=== PATIENT | male | born 1945 | race Caucasian/White ===

== ENCOUNTER 2020-10-30 17:21 | Emergency (ER) | payer MEDICARE, OTHER ==
--- NOTE | 2020-10-30 18:03 | ER Document Report ---
ED Medical Screen (RME) - General Chief Complaint: Knee Pain Stated Complaint: FEVER/SHORTNESS OF BREATH - HPI Notes: 10/30/20 17:57 Rapid Medical Exam HPI: 75-year-old male presents to the ER complaining of left knee pain swelling and fever since this morning. Patient had a left total knee replacement on Tuesday in [place]. Temp up to 102 today. Patient went to physical therapy today and they noted the fever and sent him on to orthopedics and [facility] decided to send the patient to the ER for further evaluation. Patient says they want a Covid test. Patient says he had a negative Covid test on Tuesday before the surgery and is quarantine since. He has no other associated signs of Covid like loss of taste or smell, sore throat, shortness breath, nausea vomiting diarrhea, cough etc. Patient does complain of increased fatigue. He does ambulate with a walker with pain. Bandages were removed today from the knee so patient is unsure about any changes regarding the swelling/redness. Patient says knee pain has worsened today and has a lot of difficulty with any range of motion of that knee while in triage. Physical Exam: GENERAL: Well-appearing, well-nourished and in no acute distress. HEAD: Atraumatic, normocephalic. ENT: Moist mucous membranes. RESP: Respirations even and unlabored CV- Regular rate. NEURO: No focal neurological deficits. Moves all extremities spontaneously and on command. msk-left kneemoderate swelling erythema to the anterior knee. Erythema tracks proximally to the medial thigh, warm to palpation. Incisions to anterior knee are Dermabond did with Steri-Strips and well approximated, small amount of dried blood. No active drainage or bleeding. My involvement in this patients care was limited to a rapid initial assessment. A comprehensive ED assessment and evaluation of the patient, analysis of test results, treatment, and completion of the medical decision making process will be performed by other ER providers. 10/30/20 18:01 Past Medical History - Social History Frequency of alcohol use: None Drug Abuse: None Physical Exam - Vital signs Vitals: Temp Pulse Resp BP Pulse Ox 99.2 F 98 18 153/56 H 97 10/30/20 17:34 10/30/20 17:34 10/30/20 17:34 10/30/20 17:34 10/30/20 17:34 Course - Vital Signs Vital signs: Temp Pulse Resp BP Pulse Ox 99.2 F 98 18 153/56 H 97 10/30/20 17:34 10/30/20 17:34 10/30/20 17:34 10/30/20 17:34 10/30/20 17:34
--- NOTE | 2020-10-30 18:44 | RADIOLOGY REPORT (SQ) ---
EXAM DESCRIPTION: CHEST SINGLE VIEW IMAGES COMPLETED DATE/TIME: 10/30/2020 6:12 pm REASON FOR STUDY: fever, sob, post op kne replacement COMPARISON: None. EXAM PARAMETERS: NUMBER OF VIEWS: One view. TECHNIQUE: Single frontal radiographic view of the chest acquired. RADIATION DOSE: NA LIMITATIONS: None. FINDINGS: LUNGS AND PLEURA: No opacities, masses or pneumothorax. No pleural effusion. MEDIASTINUM AND HILAR STRUCTURES: No masses. Contour normal. HEART AND VASCULAR STRUCTURES: Heart normal in size. Normal vasculature. BONES: No acute findings. HARDWARE: None in the chest. OTHER: No other significant finding. IMPRESSION: NO ACUTE RADIOGRAPHIC FINDING IN THE CHEST. TECHNICAL DOCUMENTATION: JOB ID: [id number] 2010 [employer]- All Rights Reserved Reading location - IP/workstation name: [email or web address]
[2020-10-30 19:01] LABS: ABSOLUTE BASOPHILS # (AUTO) 0.1 10^3/uL (0.0-0.2); ABSOLUTE EOSINOPHILS # (AUTO) 0.3 10^3/uL (0.0-0.6); ABSOLUTE LYMPHOCYTES (AUTO) 1.6 10^3/uL (0.5-4.7); ABSOLUTE NEUT (AUTO) 5.9 10^3/uL (1.7-8.2); BASOPHILS % (AUTO) 0.6 % (0-2); EOSINOPHILS % (AUTO) 3.5 % (0-6); HEMATOCRIT 34.9 % (37.9-51.0); LYMPHOCYTES % (AUTO) 18.5 % (13-45); MEAN CORPUSCULAR HEMOGLOBIN 28.9 pg (27.0-33.4); MEAN CORPUSCULAR HGB CONC 34.4 g/dL (32.0-36.0); MEAN CORPUSCULAR VOLUME 84 fl (80-97); MONOCYTES % (AUTO) 11.7 % (3-13); PLATELET COUNT 178 10^3/uL (150-450); RED BLOOD COUNT 4.15 10^6/uL (4.35-5.55); RED CELL DISTRIBUTION WIDTH 13.1 % (11.5-14.0); SEGMENTED NEUTROPHILS % (AUTO) 65.7 % (42-78); TOTAL CELLS COUNTED % (AUTO) 100 %; WHITE BLOOD COUNT 8.9 10^3/uL (4.0-10.5)
[2020-10-30 19:05] LABS: ANION GAP 5 (5-19); BLOOD UREA NITROGEN 15 mg/dL (7-20); C-REACTIVE PROTEIN 59.9 mg/L (<10.0); CALCIUM 8.8 mg/dL (8.4-10.2); CARBON DIOXIDE 32 mmol/L (22-30); CHLORIDE 102 mmol/L (98-107); GLUCOSE 103 mg/dL (75-110); POTASSIUM 4.7 mmol/L (3.6-5.0)
[2020-10-30 19:41] LABS: ERYTHROCYTE SEDIMENTATION RATE 19 mm/hr (0-20)
[2020-10-30] MEDS ORDERED: ACETAMINOPHEN 325 MG TABLET PO ONE (20:09)
[2020-10-30] MEDS ORDERED: VANCOMYCIN HCL INJ 1000 MG VIAL IV ONE (20:32)
[2020-10-30] MEDS ORDERED: MAGNESIUM CITRATE 296 ML BOTTLE PO ONE (20:33)
--- NOTE | 2020-10-30 20:41 | RADIOLOGY REPORT (SQ) ---
EXAM DESCRIPTION: US EXTREMITY VEINS LEFT COMPLETED DATE/TME: 10/30/2020 20:06 CLINICAL HISTORY: 75 years, Male, left leg swelling, post op knee replacement COMPARISON: None. TECHNIQUE: LIMITATIONS: None. FINDINGS: The common femoral, femoral, popliteal, posterior tibial and peroneal veins are patent and compressible. Venous Doppler waveforms are unremarkable. IMPRESSION: No evidence of deep venous thrombosis. copyright 2010 [employer]- All Rights Reserved
[2020-10-30 20:57] LABS: A TYPE INFLUENZA AG NEGATIVE (NEGATIVE); B INFLUENZA AG NEGATIVE (NEGATIVE)
--- NOTE | 2020-10-30 21:41 | ER Document Report ---
ED General - General Chief Complaint: Knee Pain Stated Complaint: FEVER/SHORTNESS OF BREATH Notes: 75-year-old male with history of hyperlipidemia, bladder CA in remission presents with fever today status post left knee replacement 2 days ago. Patient was discharged 2 days ago and followed up with the PA from Dr. Holman's office just prior to arrival in the ED. Patient initially told me that Dr. Holman's PA was concerned that his knee replacement was infected and that he had sent him to the hospital for antibiotics. On speaking to Dr. Holman's PA David Schofield he says that now he had examined patient's knee and did not see any signs of infection and felt that the swelling and erythema were proceeded for patient being 2 days postop and that this was normal healing but he had sent him to the emergency department because he was extremely short of breath in the office and coughing and he was concerned that he had Covid. Patient initially denied having any shortness of breath to me but does endorse feeling short of breath earlier in the office. Patient says that he was short of breath earlier when he was using a walker and walking around the office but has not been short of breath since then. Patient says that his knee feels more painful and more red today, but has also been walking on it more today because he had to go to follow-up appointment. Patient denies any cough, chest pain, abdominal pain, vomiting, back pain, headache, neck pain or stiffness, urinary symptoms. Fever in the office was 102.? prior to being transferred to ED. - Related Data Allergies/Adverse Reactions: bee pollen Allergy (Verified 10/30/20 23:09) cefazolin [From Anc] Allergy (Verified 10/30/20 23:09) gentamicin Allergy (Verified 10/30/20 23:09) Past Medical History - General Information source: Patient, Office - Social History Smoking Status: Never Smoker Frequency of alcohol use: None Drug Abuse: None Family History: Reviewed & Not Pertinent Patient has homicidal ideation: No Review of Systems - Review of Systems Notes: REVIEW OF SYSTEMS: CONSTITUTIONAL : +fever, chills, or sweats. EENT: Denies recent cold/sinus symptoms, denies throat pain CARDIOVASCULAR: Denies chest pain, +BOSSMAN RESPIRATORY: Denies cough, denies shortness of breath. GASTROINTESTINAL: Denies abdominal pain, nausea/vomiting. GENITOURINARY: Denies difficulty urinating, painful urination. MUSCULOSKELETAL: Denies neck pain, back pain. SKIN: Denies rash or skin lesions. HEMATOLOGIC : Denies easy bruising or bleeding. LYMPHATIC: Denies swollen, enlarged glands. NEUROLOGICAL: Denies headache, denies change in gait. PSYCHIATRIC: Denies anxiety or stress or depression. Physical Exam - Vital signs Vitals: Temp Pulse Resp BP Pulse Ox 99.2 F 98 18 153/56 H 97 10/30/20 17:34 10/30/20 17:34 10/30/20 17:34 10/30/20 17:34 10/30/20 17:34 - Notes Notes: PHYSICAL EXAMINATION: GENERAL: Well-appearing, well-nourished and in no acute distress. HEAD: Atraumatic, normocephalic. EYES: Pupils equal round and appropriate constriction, sclera anicteric, conjunctiva are normal. ENT: nares patent, moist mucous membranes. NECK: Normal range of motion, supple without lymphadenopathy LUNGS: Breath sounds clear to auscultation bilaterally and equal. No wheezes rales or rhonchi. Normal respiratory rate and effort HEART: Regular rate and rhythm without murmurs ABDOMEN: Soft, nontender, no guarding, no masses, no CVAT EXTREMITIES: Bilateral DP pulses 2+, distal strength and sensation intact. Kinjal ent with left knee longitudinal surgical incision in early stages of healing with diffuse edema around the knee with some distal edema to the left foot with mild erythema diffusely around the knee, patient able to range knee passively, no calf tenderness, no wound dehiscence, no discharge from wound, no wound tenderness NEUROLOGICAL: Awake, alert, conversing appropriately, moves all extremities spontaneously. PSYCH: Normal mood, normal affect. SKIN: Warm, Dry, normal turgor Course - Re-evaluation Re-evalutation: 10/30/20 23:26 Patient initially reported that he had been seen for a wound infection and was sent for antibiotics to the hospital, I consulted the orthopedic surgeon on-call at [facility] who got in touch with the PA who patient saw just prior to arrival to the ED and that PA says that he does not see any wound infection and that he sent him for concerns for his shortness of breath. Orthopedic surgeon on-call was not concerned for the elevated inflammatory markers and felt that this was commensurate with patient being 2 days postop. After being able to confirm this history from outside providers I canceled antibiotics. Patient not short of breath in the ED and normal vital signs. Patient's wound appears to be appropriate for the stage of healing. Patient with constipation since starting opioids postop but no obstipation, no vomiting, no abdominal pain. Patient's abdomen nontender. Patient without any other symptoms that would possibly cause patient to have a fever or shortness of breath. Rule out ACS, PE, COVID-19, pneumonia, occult UTI. Obtain D-dimer which was positive so CT is currently pending. Do not have high enough suspicion for PE to empirically treat at this time but will continue to monitor closely. At patient's request I called daughter to inform her of patient's care and I updated patient as to the status of his evaluation. 10/31/20 02:24 Patient remains without any shortness of breath in the ED, patient CT a shows no pulmonary embolism, repeated 6-hour troponin given patient's age and the troponin remains negative, patient continues to feel well, ready for discharge with close orthopedic and PCP follow-up. Gave patient extensive return to ED precautions which he demonstrated understanding of. Patient given Covid precautions. - Vital Signs Vital signs: Temp Pulse Resp BP Pulse Ox 98.2 F 87 18 147/62 H 98 10/31/20 01:10 10/31/20 02:55 10/31/20 02:55 10/31/20 02:55 10/31/20 02:55 - Laboratory Results Result Diagrams: 10/30/20 18:10 10/30/20 18:10 Laboratory Results Interpreted: 10/30/20 10/30/20 10/30/20 18:10 18:10 18:10 RBC 4.15 L Hgb 12.0 L Hct 34.9 L D-Dimer 1.44 H Carbon Dioxide 32 H C-Reactive Protein 59.9 H Urine Ketones Urine Urobilinogen 10/30/20 20:57 RBC Hgb Hct D-Dimer Carbon Dioxide C-Reactive Protein Urine Ketones TRACE H Urine Urobilinogen 2.0 H Critical Laboratory Results Reviewed: No Critical Results - Radiology Results Critical Radiology Results Reviewed: No Critical Results - EKG Interpretation by Me Additional EKG results interpreted by me: 10/31/20 06:44 Sinus rhythm, no significant ST elevations or depressions, no significant T wave abnormalities Discharge - Discharge Clinical Impression: Postoperative fever Disposition: HOME, SELF-CARE Instructions: COVID-19 Guidance for Persons Under Investigation Additional Instructions: Follow-up with your orthopedic surgeon tomorrow to have follow-up appointment within the next 3 days. If you develop any new symptoms such as trouble breathing, chest pain, worsening pain or redness or swelling in your knee, rash, confusion, vomiting, abdominal pain, urinary symptoms, neck pain or stiffness, headache, or any other worsening or alarming symptoms return to the emergency department immediately. Patient was provided with discharge information including: As a person under investigation for Covid 19, the [facility], division of public health advises you to adhere to the following guidance until your test results are reported to you. If your test result is positive, you will receive additional information from your provider and your local health department at that time. Remain at home until you are cleared by the health provider or public health authorities. Keep a log of visitors to your home, notify any visitors to your home of your isolation status. If you plan to move to a new address or leave the [facility], notify the local health department in your County. Call your doctor or seek care if you have an urgent medical need. Before s eeking medical care, call ahead to get instructions from the provider before arriving at the medical office clinic or hospital. Notify them that you are being tested for the virus that causes Covid 19 so that arrangements can be made, as necessary, to prevent transmission to others in the healthcare setting. Next, notify the local health department in your county. If a medical emergency arises and you need to call 911, inform the first responders that you are being tested for the virus that causes Covid 19. Next, notify the local health department in your county. Prescriptions: Magnesium Citrate [Citrate of Magnesia 296 ml Bottle] 150 ml PO DAILY PRN #2 bottle PRN Reason: Constipation
[2020-10-30 22:00] LABS: APPEARANCE,URINE CLEAR; BILIRUBIN,URINE NEGATIVE (NEGATIVE); COLOR,URINE YELLOW; GLUCOSE, URINE NEGATIVE (NEGATIVE); KETONES,URINE TRACE mg/dL (NEGATIVE); PROTEIN,URINE NEGATIVE (NEGATIVE)
[2020-10-30] MEDS ORDERED: CIPROFLOXACIN 400 MG/D5W RTU 400 MG/200 ML RTUPB IV SCH (22:00)
[2020-10-30] MEDS ORDERED: OXYCODONE HCL IR 5 MG TABLET PO ONE (22:22)
--- NOTE | 2020-10-31 00:51 | RADIOLOGY REPORT (SQ) ---
EXAM DESCRIPTION: Site: [facility] CHEST RP: CT CHEST ANGIOGRAPHY WITH IV CONTRAST CLINICAL HISTORY: 75 years Male; postop KNEE REPLACE 10/29 sob Ddimer 1.44; TECHNIQUE: CT angiogram of the chest using intravenous contrast. MIP reconstructions were performed. All CT scans at this facility use dose modulation, iterative reconstruction, and/or weight based dosing when appropriate to reduce radiation dose to as low as reasonably achievable. COMPARISON: None. FINDINGS: Pulmonary arteries: No filling defects in the central pulmonary arteries. Lungs: Lungs are clear. No pneumothorax or pleural effusion. Mediastinum:No mediastinal mass or adenopathy. Mediastinal vascular structures are unremarkable. Bones:No acute bone findings. Liver: Diffusely hypodense although incompletely visualized. Gallbladder is surgically absent. IMPRESSION: 1. No CT evidence for pulmonary embolism. 2. No acute pulmonary findings. 3. Hepatic steatosis
[2020-10-31 03:16] VITALS: BP 147/62
--- NOTE | 2020-10-31 19:35 | EKG REPORT ---
SEVERITY:- NORMAL ECG - SINUS RHYTHM : Confirmed by: Arlen Robles MD 31-Oct-2020 19:35:03
== END 2020-10-31 03:05 | disposition home or self-care (01) ==
LOC: ER 17:21
DX: R50.82 Postprocedural fever (principal); M25.562 Pain in left knee; K59.00 Constipation, unspecified; R79.89 Other specified abnormal findings of blood chemistry; R06.02 Shortness of breath; K76.0 Fatty (change of) liver, not elsewhere classified; Z96.652 Presence of left artificial knee joint; Z91.030 Bee allergy status; Z88.1 Allergy status to other antibiotic agents; Z20.822 Contact with and (suspected) exposure to COVID-19
CPT/HCPCS: 93005; 99285; 36415; 87040; 85025; 85652; 86140; 80048; 81001; 84484; 85379; 87804; 93971; 71045; 71275; 93010; U0003; A9270 ×2; C9803; 87635; J3490